=== PATIENT | male | born 1960 | race African-American/Black ===

== ENCOUNTER 2017-07-27 01:27 | Emergency (ER) | payer BC, OTHER ==
[~2017-07-27] VITALS: Ht 167.6 cm; Wt 99.8 kg
--- NOTE | ~2017-07-27 | EKG ---
[place] [address] [address] [place] [address] ELECTROCARDIOGRAM REPORT Name: SOLEDAD KABA Room #: DEP DAVION Quigley#: [id number] Admission: 07/27/17 Attend Phys: Discharge: 07/27/17 Date of : 58 Report #: [id number] THIS REPORT FOR: //name// [facility] ED Test Date: 2017-07-27 Test Time: 01:46:16 Pat Name: SOLEDAD KABA Department: Room: Gender: M Director Software: amna : 1960 Requested By: Oxana Ramirez Order Number: [id number] MD: Sher Louis Measurements Intervals [place] Rate: 69 P: 36 DC: 128 QRS: 21 QRSD: 94 T: 31 QT: 406 QTc: 435 Interpretive Statements Sinus rhythm Atrial premature complex Baseline wander in lead(s) V2 Compared to ECG 02/17/2016 18:44:38 Intraventricular conduction delay no longer present Electronically Signed On 07-27-2017 9:06:57 [employer]OL WORK[employer] by Sher Louis [email or web address] <ELECTRONICALLY SIGNED> By: Sher Louis MD 07/27/17905 0146 014 Sher Louis MD /DEBBY
[~2017-07-27 01:27] MED LIST: ASPIR 8181 MG PO; AZULFIDINE500 MG PO; COZAAR 50 MG TA50 M2 PO; LIPITOR 20 MG T20 M1 PO
[2017-07-27] MEDS ORDERED: ALLOPURINOL 10100 M1 PO ×2 (01:52)
[2017-07-27 03:25] LABS: ABSOLUTE NEUTROPHILS 9.6 thou/uL (1.4-8.2); BASOPHILS 0.7 % (0.0-2.0); EOSINOPHILS 1.7 % (0.0-3.0); HEMATOCRIT 41.4 % (42.0-52.0); HEMOGLOBIN 14.5 gm/dL (14.0-18.0); LYMPHOCYTES 12.5 % (24.0-44.0); MCH 34.1 pg (26.0-34.0); MCHC 34.9 g/dL (28.0-37.0); MCV 97.6 fL (80.0-100.0); MONOCYTES 8.4 % (1.0-8.0); PLATELET COUNT 205 thou/uL (150-400); POLYS 76.7 % (36.0-66.0); RBC 4.24 mil/uL (4.50-6.00); RDW 13.5 % (10.5-14.5); WBC 12.5 thou/uL (4.0-11.0)
[2017-07-27 06:27] LABS: ALBUMIN 3.7 g/dL (3.4-5.0); ANION GAP 17 mmol/L (7-16); BUN 13 mg/dL (7-18); CALCIUM 8.7 mg/dL (8.5-10.1); CHLORIDE 100 mmol/L (98-107); CO2 20 mmol/L (21-32); CREATININE 0.9 mg/dL (0.7-1.3); DIRECT BILIRUBIN 0.2 mg/dL (<0.1-0.3); GLUCOSE 110 mg/dL (74-106); LIPASE 84 U/L (73-393); POTASSIUM 4.1 mmol/L (3.5-5.1); SGOT 23 U/L (15-37); SGPT 47 U/L (30-65); SODIUM 137 mmol/L (136-145); TOTAL BILIRUBIN 0.7 mg/dL (<0.1-1.0); TOTAL PROTEIN 7.3 g/dL (6.4-8.2); TROPONIN-I < 0.04 ng/mL (<0.06)
[2017-07-27] MEDS ORDERED: NORCO 5-325 TA1 EACH PO (06:49)
[2017-07-27] MEDS ORDERED: VALIUM5 MG PO (06:49)
[2017-07-27] MEDS ORDERED: MOBIC15 MG PO (06:49)
[2017-07-27 07:25] VITALS: BP 140/72
== END 2017-07-27 07:27 | disposition home or self-care (01) ==
LOC: ER 01:27
PROVIDERS: Emergency Medicine
DX: M62.838 Other muscle spasm (principal); M54.5 Low back pain; R07.89 Other chest pain; Z98.890 Other specified postprocedural states